=== PATIENT | female | born 1970 | race Caucasian/White ===

== ENCOUNTER 2024-09-15 18:23 | Emergency (ER) | payer OTHER ==
[2024-09-15] MEDS: Iopamidol 755 Mg/ML 100 ML Bottle IVPUSH ONE (18:44)
[2024-09-15 18:46] LABS: BASOPHILS PERCENT AUTO 0.3 % (0.0-1.0); EOSINOPHILS PERCENT AUTO 1.5 % (1.0-3.0); HEMATOCRIT 35.7 % (37.0-47.0); HEMOGLOBIN 12.4 g/dL (12.0-16.0); LYMPHOCYTES PERCENT AUTO 26.9 % (20.5-50.1); MEAN CORPUSCULAR HEMOGLOBIN 32.5 pg (27.0-34.0); MEAN CORPUSCULAR HGB CONC 34.7 g/dL (33.0-35.0); MEAN CORPUSCULAR VOLUME 93.5 fL (80-100); MONOCYTES PERCENT AUTO 8.2 % (2-8); NEUTROPHILS PERCENT AUTO 63.1 % (42.2-75.2); PLATELET COUNT,PLT 332 10^3/uL (150-450); RED BLOOD CELL COUNT 3.82 10^6/uL (4.2-5.4); WHITE BLOOD CELL COUNT,WBC 6.9 10^3/uL (5.0-10.0)
[2024-09-15] MEDS: Sodium Chloride 0.9% 1,000 ML IV ONE (18:51)
[2024-09-15 19:09] LABS: A/G RATIO 1.2; ALANINE AMINOTRANSFERASE,ALT 33 U/L (14-59); ALBUMIN 3.5 g/dL (3.4-5.0); ALKALINE PHOSPHATASE 58 U/L (46-116); ASPARTATE AMNIOTRANSFERASE,AST 22 U/L (15-37); BILIRUBIN TOTAL 0.3 mg/dL (0.2-1.0); BLOOD UREA NITROGEN,BUN 9 mg/dL (7-18); BUN/CREATININE RATIO 12.7 (No establ ref range); CALCIUM 8.5 mg/dL (8.5-10.1); CREATININE 0.71 mg/dL (0.55-1.02); ETHANOL BLOOD MEDICAL 244 mg/dL (0); GLUCOSE RANDOM 99 mg/dL (70-99); PROTEIN TOTAL,TP 6.3 g/dL (6.4-8.2)
[2024-09-15 19:15] LABS: ANION GAP 12.7 mEq/L (7-13); CARBON DIOXIDE,CO2 26 mmol/L (21-32); CHLORIDE,CL 93 mmol/L (98-107); POTASSIUM,K 3.7 mmol/L (3.5-5.1); SODIUM,NA 128 mmol/L (136-145)
[2024-09-15 19:16] LABS: ESTIMATED GFR 101 mL/min (>=60)
[2024-09-15 19:25] LABS: APPEARANCE,URINE CLEAR (CLEAR); BILIRUBIN,URINE NEGATIVE (NEGATIVE); COLOR,URINE STRAW (YELLOW); GLUCOSE,URINE NEGATIVE (NEGATIVE); KETONES,URINE NEGATIVE (NEGATIVE); LEUKOCYTE ESTERASE,URINE NEGATIVE (NEGATIVE); NITRITE,URINE NEGATIVE (NEGATIVE); OCCULT BLOOD,URINE NEGATIVE (NEGATIVE); PROTEIN,URINE NEGATIVE (NEGATIVE); UROBILINOGEN,URINE 0.2 mg/dL (0.2-1.0)
[2024-09-15 19:26] LABS: AMPHETAMINES,URINE NEGATIVE (NEGATIVE); BARBITURATES,URINE NEGATIVE (NEGATIVE); BENZODIAZEPINE,URINE NEGATIVE (NEGATIVE); MDMA (ECSTASY), URINE NEGATIVE (NEGATIVE); METHADONE,URINE NEGATIVE (NEGATIVE); METHAMPHETAMINES,URINE NEGATIVE (NEGATIVE); OPIATES,URINE NEGATIVE (NEGATIVE); OXYCODONE,URINE NEGATIVE (NEGATIVE); PHENCYCLIDINE,URINE NEGATIVE (NEGATIVE); TCA,URINE NEGATIVE (NEGATIVE)
== END 2024-09-15 20:46 | disposition home or self-care (01) ==
LOC: DL.ED 18:23
DX: H53.2 Diplopia (principal); F10.129 Alcohol abuse with intoxication, unspecified; Z88.5 Allergy status to narcotic agent
CPT/HCPCS: 36415; 70496; 70498; 80053; 80305; 80307; 81003; 84484; 85025; 93005; 99284; J7030; Q9967; 93010